=== PATIENT | male | born 1935 | race Caucasian/White ===

== ENCOUNTER 2017-08-17 08:26 | Outpatient (CLI) | payer MEDICARE ==
[~2017-08-17] VITALS: Ht 179.1 cm; Wt 80.9 kg
--- NOTE | ~2017-08-17 | OP ---
PATIENT NAME: DANA WU MEDICAL RECORD: [id number] :35 LOCATION:D.CAT ADMISSION DATE: SURGEON: ANAM SANCHEZ MD DATE OF OPERATION: 08/17/2017 PROCEDURES: 1. PTCA stent LAD. 2. Left heart catheterization. 3. Selective coronary angiography. 4. Left ventriculogram. 5. Intravascular ultrasound. INDICATION: Angina and coronary artery disease. PROCEDURE IN DETAIL: After informed consent was obtained and after detailed explanation of risks, benefits as well as alternative therapies, the patient elected to proceed with angiogram and angioplasty. The right femoral area was prepped and draped in normal sterile fashion. The right femoral artery was cannulated via modified Seldinger technique with placement of 6-Gu[place] sheath. All catheters exchanged through this sheath. FINDINGS: Left ventriculogram was performed in standard 30-degree JACOB view, reveals good cardiac wall motion throughout all segments. Overall ejection fraction estimated at 60%. SELECTIVE CORONARY ANGIOGRAPHY: 1. Left main showed no significant angiographic disease. 2. Left anterior descending has previously placed stents. There is up to 80% in-stent restenosis confirmed by intravascular ultrasound in the mid vessel. 3. Left circumflex shows moderate irregularities, but no flow-limiting stenosis. 4. The right coronary artery has moderate irregularities, but no flow-limiting stenosis. 5. There is a small vein graft that goes to a LAD diagonal system that is extremely small, but this is widely patent, unchanged from previous angiography. PTCA STENT OF THE LAD: The stent used is a 2.75 x 15 mm [place] taken to 21 atmospheres. Result was 0% residual stenosis. OVERALL IMPRESSION: Successful percutaneous transluminal coronary angioplasty stent of the left anterior descending going from 80% initial stenosis to 0% residual stenosis. TRANSINT:[id number] Voice Confirmation ID: [id number] DOCUMENT ID: [id number] ANAM SANCHEZ MD at 1056 CC: [id number] DICTATION DATE: 08/17/17 1121 OVEN HEATER: 08/17/17 1304 DEP CLI 08/17/17 [facility] [address] [id number]
--- NOTE | ~2017-08-17 | HEMODYNAMI ---
PATIENT:DANA WU MEDICAL RECORD: [id number] : 35 LOCATION:YUE ADMISSION DATE: 08/17/17 Generatedon:08/17/201711:26 Patient name: DANA WU Patient #: [id number] SSN: : 1935 Date of study: 08/17/2017 Page: Of Hemodynamic Procedure Report Patient Data Patient Demographics Procedure consent was obtained First Name: DANA Gender: Male Last Name: JAZMIN : 1935 [facility] Initial: O Age: 82 year(s) Patient #: [id number] Race: Additional ID: [id number] Contact details [address]: [address] [place] [address] State: [place] City: [place] Zip code: [address] Past Medical History Allergies Allergen Reaction Date Comments Reported Other allergy 09/25/2014 Amlodipine, Fenofibrate Other allergy 08/17/2017 AMLODIPIM, NIASPAN, FENOFIBRATE Admission Admission Data Admission Date: 08/17/2017 Admission Time: 8:26 Height (in.): 70 BSA: 2.01 (m2) Height (cm.): 177.8 BMI: 26.26 (kg/m2) Weight (lbs.): 183 Weight (kg.): 83.01 Lab Results Lab Result Date: 08/17/2017 Lab Result Time: 0:00 Biochemistry Name Units Result Min Max BUN mg/dl 19 --(----)*- 7 18 Creatinine mg/dl 0.9 --(-*--)-- 0.6 1.3 Procedure Procedure Types Cath Procedure Diagnostic Procedure LHC LHC w/Coronaries w/Grafts FFR/IVUS Intra-Coronary IVUS Initial PCI Procedure Coronary Stent Coronary Stent Initial Procedure Description Procedure Date Procedure Date: 08/17/2017 Procedure Start Time: 10:59 Procedure End Time: 11:25 Procedure Staff Name Function Juan Goodman MD Performing Physician Celso Guerrero RT Monitor Morales Reeves RN Nurse Liliane Kel RT Scrub Procedure Data Cath Procedure Fluoroscopy Diagnostic fluoroscopy Total fluoroscopy Time: 4.3 time: 4.3 min min Diagnostic fluoroscopy Total fluoroscopy dose: dose: 325.11 mGy 325.11 mGy Contrast Material Contrast Material Type Amount (ml) Isovue 300 92 Entry Location Entry Primary Successful Side Size Upsize Upsize Entry Closure Succes sful Closure Location (Fr) 1 (Fr) 2 (Fr) Remarks Device Remarks Femoral Right 5 Fr 6 Fr artery Short Estimated blood loss: 10 ml Diagnostic catheters Device Type Used For End Catheter Placement MULTIPACK Pigtail 5 Fr Procedure catheter MULTIPACK JL 4.0 5Fr Procedure catheter MULTIPACK 3DRC 5Fr Procedure catheter DIAGNOSTIC AR 1 MOD 5Fr Procedure catheter ([id number]) Procedure Medications Medication Administration Route Dosage Heparin Flush Bag added to field 2 bags (1000units/500ml NS) 0.9% NaCl I.V. 100 ml/hr Oxygen etCO2 Nasal cannula 2 l/min Fentanyl I.V. 50 mcg Versed I.V. 1 mg Fentanyl I.V. 50 mcg Versed I.V. 1 mg Heparin Bolus I.V. 4000 units Integrilin (Bolus I.V. 7.3 ml 2mg/ml) Integrilin (Bolus I.V. 2.7 ml 2mg/ml) Plavix P.O. 600 mg Hemodynamics Rest BSA: 2.01 (m2) O2 Consumption: Estimated: 213.99 (ml/min) O2 Consumption indexed : Estimated:106.46 (ml/min/m) Heart Rate: 50 (bpm) Pressure Samples Time Site Value (mmHg) Purpose Heart Use Rate(bpm) 11:00 LV 127/4,13 Snapshot 53 Snapshots Pre Cath Intra NCS Post Cath Vital Signs Time Heart Resp SPO2 etCO2 NIBP (mmHg) Rhythm Pain Sedation Rate (ipm) (%) (mmHg) Status Level (bpm) 10:37:28 58 19 97 28 164/82(134) NSR 0 (11) 10(A) , No pain 10:42:04 51 16 99 25.7 156/74(127) NSR 0 (11) 10(A) , No pain 10:46:39 53 16 99 35.5 160/69(125) NSR 0 (11) 10(A) , No pain 10:51:03 55 17 94 18.9 148/75(116) NSR 0 (11) 10(A) , No pain 10:55:31 51 17 97 24.9 158/67(130) NSR 0 (11) 10(A) , No pain 10:59:56 52 16 97 21.2 139/72(113) NSR 0 (11) 10(A) , No pain 11:04:54 58 17 95 34.8 Measuring NSR 0 (11) 9(A) , No pain 11:05:17 63 16 92 0 138/70(110) NSR 0 (11) 9(A) , No pain 11:09:41 59 17 95 0 141/69(109) NSR 0 (11) 9(A) , No pain 11:14:03 60 17 95 34 135/72(111) NSR 0 (11) 9(A) , No pain 11:18:26 57 17 96 17.4 149/71(120) NSR 0 (11) 9(A) , No pain 11:20:57 60 17 94 0 136/73(107) NSR 0 (11) 9(A) , No pain 11:25:21 56 10 96 29.5 132/68(109) NSR 0 (11) 9(A) , No pain Medications Time Medication Route Dose Verified Delivered Reason Notes Effectiveness by by 10:37:56 Heparin Flush added 2 Juan Trujilloy used for Bag to bags Rex Reeves RN procedure (1000units/500ml field NS) 10:38:07 0.9% NaCl I.V. 100 Juan Trujilloy Per physician ml/hr Rex Reeves RN 10:46:35 Oxygen etCO2 2 Juan Morales Per physician Nasal l/min Rex Reeves RN cannula 10:54:53 Fentanyl I.V. 50 Juan Morales for sedation mcg Rex Reeves RN 10:55:00 Versed I.V. 1 mg Juan Morales for sedation Rex Reeves RN 10:59:48 Fentanyl I.V. 50 Juan Morales for sedation mcg Rex Reeves RN 10:59:53 Versed I.V. 1 mg Juan Morales for sedation Rex Reeves RN 11:08:20 Heparin Bolus I.V. 4000 Juan Nielsen for units Rex Reeves RN anticoagulation 11:13:56 Integrilin I.V. 7.3 Juan Morales for (Bolus 2mg/ml) ml Rex Reeves RN antiplatelet therapy 11:14:04 Integrilin I.V. 2.7 Juan Nielsen for (Bolus 2mg/ml) ml Rex Reeves RN antiplatelet therapy 11:19:51 Plavix P.O. 600 Juan Nielsen for mg Rex Reeves RN antiplatelet therapy Procedure Log Time Note 10:09:04 Patient Height : 70 inches 10:09:08 Patient Weight : 183 lbs 10:09:54 Diagnostic Cath status Elective 10:09:56 Liliane Begum RT(R) sent for patient. Start room use. 10:09:57 Time tracking: Regular hours 10:10:02 Plan of Care:Hemodynamics will remain stable., Cardiac rhythm will remain stable., Comfort level will be maintained., Respiratory function will remain adequate., Patient/ family verbilizes understanding of procedure., Procedure tolerated without complication., Recovers from procedure without complications.. 10:28:45 Patient received from Pre/Post Procedure Room to [facility] 3 Alert and oriented. Tansferred to table in Supine position. 10:28:47 Warm blankets applied, and janine hugger turned on for patient comfort. 10:28:48 Correct patient and procedure confirmed by team. 10:28:52 Signed procedure consent form obtained from patient. 10:32:20 ECG and BP/O2 sat monitors applied to patient. 10:36:00 Vital chart was started 10:37:56 Heparin Flush Bag (1000units/500ml NS) 2 bags added to field was administered by Morales Reeves RN; used for procedure; 10:38:07 0.9% NaCl 100 ml/hr I.V. was administered by Morales Reeves RN; Per physician; 10:39:10 Baseline sample Acquired. 10:39:13 Rhythm: sinus rhythm 10:39:15 Full Disclosure recording started 10:39:30 H&P Date Dictated: 08/13/2017 Within 30 days and on chart.. 10:39:34 Pre-procedure instructions explained to patient. 10:39:34 Pre-op teaching completed and patient verbalized understanding. 10:39:37 Family in waiting room. 10:39:41 Patient NPO since Midnight. 10:43:31 Patient allergic to Other allergy AMLODIPIM, NIASPAN, FENOFIBRATE 10:43:36 Is the patient allergic to Iodine/contrast media? No. 10:43:39 Is patient on blood thinner?No 10:43:45 Patient diabetic? Yes. 10:43:47 If diabetic: On Metformin? No 10:43:56 DIET CONTROL 10:44:07 ----Pre-sedation anethsthesia assessment.---- 10:44:09 Previous problem with sedation/anesthesia? No ? 10:44:12 Snore? Yes 10:44:13 Sleep apnea? No 10:44:15 Deviated septum? No 10:44:25 Opens mouth fully? Yes 10:44:26 Sticks out tongue? Yes 10:44:29 Airway obstruction? No ? 10:44:37 Dentures? No ? 10:44:42 Pre procedure: right dorsailis pedis pulse 2+ Normal; easily identifiable; not easily obliterated 10:44:45 Patient pain scale 0/10 ?. 10:44:52 IV patent on arrival in left wrist with 0.9% NaCl at [facility]. 10:45:24 Lab Result : BUN 19 mg/dl 10:45:24 Lab Result : Creatinine 0.9 mg/dl 10:45:29 Lab results completed and on chart. 10:45:33 Right groin area was prepped with chlora-prep and draped in sterile fashion 10:45:35 Alarms reviewed by R. N. 10:45:35 Sharps counted by scrub and verified by R.N. 10:45:40 Use device set Femoral Dx 10:45:42 ACIST Syringe (66307) opened to sterile field. 10:45:43 Bag Decanter () opened to sterile field. 10:45:43 Medline Cath Pack ([id number]) opened to sterile field. 10:45:46 DIAGNOSTIC WIRE .035 260cm J wire (884984) opened to sterile field. 10:45:47 ACIST Hand Control (95428) opened to sterile field. 10:45:48 ACIST Manifold (99641) opened to sterile field. 10:45:49 DIAGNOSTIC Multipack 5Fr catheter set (TV6777) opened to sterile field. 10:45:52 Tegaderm 4 x 4 (1626W) opened to sterile field. 10:45:55 PERCUTANEOUS ENTRY 19GA needle opened to sterile field. 10:46:29 SHEATH 5Fr Prelude ([id number]) opened to sterile field. 10:46:35 Oxygen 2 l/min etCO2 Nasal cannula was administered by Morales Reeves RN; Per physician; 10:54:19 Physician arrived 10:54:19 --------ALL STOP TIME OUT------ 10:54:20 Final Timeout: patient, procedure, and site verified with staff and physician. All members of the team are in agreement. 10:54:22 Right groin site verified by team. 10:54:25 Physical assessment completed. ASA score P 2 - A patient with mild systemic disease as per Juan Goodman MD. 10:54:30 Physical assessment completed. ASA score P 2 - A patient with mild systemic disease as per Juan Goodman MD. 10:54:35 Sedation plan: IV Moderate Sedation Medication:Versed, Fentanyl 10:54:38 Zero performed for pressure channel P1 10:54:53 Fentanyl 50 mcg I.V. was administered by Morales Reeves RN; for sedation; 10:55:00 Versed 1 mg I.V. was administered by Morales Reeves RN; for sedation; 10:58:58 Procedure started. 10:59:02 Local anesthetic to right femoral artery with Lidocaine 2% by Juan Goodman MD.INITIAL ACCESS ONLY 10:59:14 A 5 Fr sheath was inserted into the Right Femoral artery 10:59:48 Fentanyl 50 mcg I.V. was administered by Morales Reeves RN; for sedation; 10:59:53 Versed 1 mg I.V. was administered by Morales Reeves RN; for sedation; 11:00:11 A MULTIPACK Pigtail 5 Fr catheter was advanced over the wire and used for Procedure. 11:01:00 LV gram done using JACOB 11:01:01 LV hemodynamics recorded. 11:01:08 EF : 60 % 11:01:38 Catheter removed. 11:01:46 A MULTIPACK JL 4.0 5Fr catheter was advanced over the wire and used for Procedure. 11:04:03 LCA angiography performed. 11:04:09 Catheter removed. 11:04:32 A MULTIPACK 3DRC 5Fr catheter was advanced over the wire and used for Procedure. 11:05:12 RCA angiography performed. 11:05:45 SHEATH 6Fr Prelude ([id number]) opened to sterile field. 11:05:57 CHOICE PT Extra Support 182cm wire ([id number]) opened to sterile field. 11:06:01 Catheter removed. 11:06:09 INFLATOR Merit Maksimk (ZQ0626) opened to sterile field. 11:06:23 A DIAGNOSTIC AR 1 MOD 5Fr catheter ([id number]) was advanced over the wire and used for Procedure. 11:06:54 SVG to OM angiography performed. 11:07:26 [place] IVUS Catheter (76520B) opened to sterile field. 11:07:35 GUIDE 6FR XBLAD 3.5 catheter ([id number]) opened to sterile field. 11:07:47 Catheter removed. 11:07:54 Proceeding to intervention. 11:08:04 Sheath upsized to a 6 Fr Short. 11:08:18 6 Fr XBLAD 3.5 guide catheter was inserted over the wire 11:08:20 Heparin Bolus 4000 units I.V. was administered by Morales Reeves RN; for anticoagulation; 11:09:33 CHOICE wire advanced. 11:10:27 Wire advanced across lesion. 11:10:31 FFR/IVUS 11:10:32 IVUS catheter advanced over wire. 11:10:36 IVUS pass to LAD lesion performed. 11:10:38 IVUS catheter removed over wire. 11:13:56 Integrilin (Bolus 2mg/ml) 7.3 ml I.V. was administered by Morales Reeves RN; for antiplatelet therapy; 11:14:04 Integrilin (Bolus 2mg/ml) 2.7 ml I.V. was administered by Morales Reeves RN; for antiplatelet therapy; 11:14:50 Inflation Number: 1 A TARIK RX 2.75 x 15 stent ([id number]) was prepped and advanced across the Mid LAD. The stent was deployed at 17 PETR for 0:10 (min:sec). 11:15:36 Stent catheter was removed intact over wire. 11:15:36 Wire removed. 11:15:37 Guide catheter removed. 11:17:28 Procedure type changed to Cath procedure, Diagnostic procedure, LHC, LHC w/Coronaries w/Grafts, FFR/IVUS, Intra-Coronary IVUS Initial, PCI procedure, Coronary Stent, Coronary Stent Initial 11:17:41 EXOSEAL 6Fr (EX600) opened to sterile field. 11:18:14 Procedure ended.(Physican Out) 11:18:30 Fluoroscopy time 04.30 minutes. 11:18:39 Flurop Dose total: 325.11 11:18:39 Fluoroscopy dose: 325.11 mGy 11:18:43 Contrast amount:Isovue 300 92ml. 11:18:45 Sharps counted by scrub and verified by R.N. 11:19:51 Plavix 600 mg P.O. was administered by Morales Reeves RN; for antiplatelet therapy; 11:23:32 Insertion/operative site no bleeding no hematoma. 11:23:36 Post-op/insertion site Right Femoral artery dressed using a 4 x 4 and Tegaderm. 11:23:40 Post right femoral artery:stable 11:23:43 Post Procedure Pulses reassessed and unchanged 11:23:52 Post procedure: right dorsailis pedis pulse 2+ Normal; easily identifiable; not easily obliterated. 11:23:56 Post-procedure physical assessment completed. ASA score P 2 - A patient with mild systemic disease as per Juan Goodman MD. 11:25:13 PATIENT WENT INTO [facility] DURING CASE. DR. GOODMAN AWARE 11:25:32 Estimated blood loss: 10 ml 11:25:33 Post procedure instruction explained to patient.Patient verbalizes understanding. 11:25:34 Patient needs reinforcement of post procedure teaching. 11:25:35 Procedure and supply charges have been captured, reviewed, submitted and are correct. 11:25:36 Vital chart was stopped 11:25:37 See physician's report for complete and final results. 11:25:40 Report given to Pre/Post Procedure Room. 11:25:44 Patient transfered to Pre/Post Procedure Room with Stretcher. 11:25:47 Procedure ended. 11:25:47 Full Disclosure recording stopped 11:25:52 End room use (Document Last) Intervention Summary Intervention Notes Time ActionType Lesion and Equipment Used Action# Pressure Duration Attributes 11:14:50 Place stent Mid LAD TARIK RX 2.75 x 1 17 00:10 15 stent ([id number]) Device Usage Item Name Manufacture Quantity Catalog Number Hospital Part Current M inimal Lot# / Charge Number Stock Stock Serial# Code ACIST Syringe Acist 1 37429 597646 331999 417199 2 0 (78022) Medical Systems Inc Bag Decanter Microtek 1 411919 26213 805498 5 () Medical Inc. Medline Cath Cardinal 1 [id number] 216152 93018 917180 5 Pack Health ([id number]) DIAGNOSTIC St [place] 1 549383 289322 765982 096231 3 0 WIRE .035 260cm J wire (953696) ACIST Hand Acist 1 25200 718418 292271 259939 5 Control Medical (52270) Systems Inc ACIST Manifold Acist 1 57189 382957 955530 446071 5 (01179) Medical Systems Inc DIAGNOSTIC Cardinal 1 TN1084 964775 73578 777259 3 0 Multipack 5Fr Health catheter set (UZ6825) Tegaderm 4 x 4 3M 1 1626W 105903 421513 328695 5 (1626W) PERCUTANEOUS Cook Medical 1 U39339 546657 323196 5 ENTRY 19GA needle SHEATH 5Fr Merit 1 [id number] 167931 992335 824330 5 Prelude Medical ([id number]) MULTIPACK Cardinal 1 321963 5 Pigtail 5 Fr Health catheter MULTIPACK JL Cardinal 1 504371 5 4.0 5Fr Health catheter MULTIPACK 3DRC Cardinal 1 274139 5 5Fr catheter Health SHEATH 6Fr Merit 1 [id number] 096437 504666 293565 5 Prelude Medical ([id number]) CHOICE PT [place] 1 [id number] 865098 855251 406460 5 Extra Support Scientific 182cm wire ([id number]) INFLATOR Merit Merit 1 CQ2784 187693 642104 031908 1 5 Lumics Medical (JS7267) DIAGNOSTIC AR Cardinal 1 [id number] 828886 090302 008778 1 5 1 MOD 5Fr Health catheter (926629D) Barrington Barrington 1 [id number] 394626 793982 823946 8 [place] IVUS Catheter (43746F) GUIDE 6FR Cardinal 1 [id number] 392538 822752 012547 1 0 XBLAD 3.5 Health catheter ([id number]) TARIK RX 2.75 x Medtronic 1 [id number] 590175 5256784 756297 5 [id number] 15 stent ([id number]) EXOSEAL 6Fr Cardinal 1 EX600 756307 797629 496425 1 0 (EX600) Health Signature Audit [place] Stage Time Signature Unsigned Intra-Procedure 08/17/2017 Celso Guerrero 11:26:11 AM RT(R) (CV) Signatures Monitor : Celso Guerrero RT Signature : Date : Time : [id number] [facility] [place] [address]
[~2017-08-17 08:26] MED LIST: BAYER CHEWABLE81 MG PO; LIPITOR10 MG PO; NEURONTIN 400400 MG PO; PLAVIX75 MG PO; PRINIVIL20 MG PO
[2017-08-17] MEDS ORDERED: CARTIA XT180 MG PO (09:18)
[2017-08-17 09:30] VITALS: BP 172/66; Ht 179.1 cm; Wt 80.9 kg
[2017-08-17 09:49] LABS: CALC OSMOLALITY 283 mosm/kg (275-300); CALCIUM 9.5 mg/dL (8.5-10.1); CARBON DIOXIDE 25.9 mmol/L (21.0-32.0); CHLORIDE - SERUM 106 mmol/L (98-107); CREATININE - SERUM 0.9 mg/dL (0.6-1.3); GLUCOSE 110 mg/dL (74-106); POTASSIUM - SERUM 4.6 mmol/L (3.5-5.1); SODIUM 141 mmol/L (136-145); UREA NITROGEN 19 mg/dL (7-18); eGFR NON AFRICAN AMERICAN 86 mL/min (90-120)
[2017-08-17 10:01] LABS: BASOPHILS 0.3 % (0-2); EOSINOPHILS 1.8 % (0-7); HEMATOCRIT 41.6 % (42.0-54.0); HEMOGLOBIN 14.2 g/dL (13.5-17.5); IMMATURE GRANULOCYTES 0.3 % (0-5); LYMPHOCYTES 27.7 % (15-50); MCH 33.1 pg (26.0-34.0); MCHC 34.1 g/dL (31.0-37.0); MEAN PLATELET VOLUME 10.1 fL (7.4-10.4); MONOCYTES 10.6 % (2-11); NEUTROPHILS 59.3 % (40-80); PLATELET COUNT 166 10x3/uL (130-400); RBC 4.29 10x6/uL (4.20-6.10); RDW 13.7 % (11.5-14.5); WBC 7.6 10x3/uL (4.8-10.8)
[2017-08-17] MEDS ORDERED: PLAVIX75 MG PO (11:30)
== END 2017-08-17 15:15 | disposition home or self-care (01) ==
LOC: D.CATH 08:26
PROVIDERS: Internal Medicine Interventional Cardiology
DX: I25.119 Atherosclerotic heart disease of native coronary artery with unspecified angina pectoris (principal); Z01.812 Encounter for preprocedural laboratory examination
CPT/HCPCS: 92978; 93459; C9600

== ENCOUNTER 2017-12-02 11:38 | Emergency (ER) | payer MEDICARE ==
[~2017-12-02] VITALS: Ht 179.1 cm; Wt 80.9 kg
[~2017-12-02 11:38] MED LIST changes: +CARTIA XT180 MG PO
[2017-12-02 11:43] VITALS: Ht 179.1 cm; Wt 80.9 kg
[2017-12-02] MEDS ORDERED: LISINOPRIL5 MG PO (11:49)
[2017-12-02 12:58] LABS: BASOPHILS 0.1 % (0-2); EOSINOPHILS 1.2 % (0-7); HEMOGLOBIN 13.4 g/dL (13.5-17.5); IMMATURE GRANULOCYTES 0.2 % (0-5); LYMPHOCYTES 15.1 % (15-50); MCH 32.7 pg (26.0-34.0); MCHC 34.4 g/dL (31.0-37.0); MCV 95.1 fL (80.0-100.0); MONOCYTES 9.5 % (2-11); NEUTROPHILS 73.9 % (40-80); PLATELET COUNT 136 10x3/uL (130-400); RDW 12.7 % (11.5-14.5); WBC 9.1 10x3/uL (4.8-10.8)
[2017-12-02 13:11] LABS: ALBUMIN 3.7 g/dL (3.4-5.0); ALKALINE PHOSPHATASE 78 U/L (46-116); ALT (SGPT) 28 U/L (10-68); BILIRUBIN - TOTAL 0.58 mg/dL (0.2-1.3); CALC OSMOLALITY 280 mosm/kg (275-300); CALCIUM 9.3 mg/dL (8.5-10.1); CARBON DIOXIDE 27.1 mmol/L (21.0-32.0); CHLORIDE - SERUM 104 mmol/L (98-107); GLUCOSE 118 mg/dL (74-106); POTASSIUM - SERUM 4.9 mmol/L (3.5-5.1); SODIUM 136 mmol/L (136-145); UREA NITROGEN 34 mg/dL (7-18); eGFR NON AFRICAN AMERICAN 76 mL/min (90-120)
[2017-12-02 13:20] LABS: THYROID STIMULATING HORMONE 1.74 uIU/mL (0.36-3.74)
[2017-12-02 14:23] VITALS: BP 143/65
== END 2017-12-02 14:06 | disposition home or self-care (01) ==
LOC: D.ER 11:38
PROVIDERS: Family Medicine
DX: R42 Dizziness and giddiness (principal); E11.9 Type 2 diabetes mellitus without complications; I10 Essential (primary) hypertension

== ENCOUNTER 2018-09-25 08:48 | Outpatient (CLI) | payer MEDICARE ==
[~2018-09-25] VITALS: Ht 179.1 cm; Wt 85.0 kg
--- NOTE | ~2018-09-25 | HEMODYNAMI ---
PATIENT:DANA WU MEDICAL RECORD: [id number] : 35 LOCATION:[facility] ADMISSION DATE: 09/25/18 Generatedon:09/25/201811:01 Patient name: DANA WU Patient #: [id number] SSN: : 1935 Date of study: 09/25/2018 Page: Of Hemodynamic Procedure Report Patient Data Patient Demographics Procedure consent was obtained First Name: DANA Gender: Male Last Name: JAZMIN : 1935 [facility] Initial: O Age: 83 year(s) Patient #: [id number] Race: Additional ID: [id number] Contact details Address: [address] [place] [address] State: [place] City: [place] Zip code: [address] Past Medical History Allergies Allergen Reaction Date Comments Reported Other allergy 09/25/2014 Amlodipine, Fenofibrate Other allergy 08/17/2017 AMLODIPIM, NIASPAN, FENOFIBRATE Other allergy 09/25/2018 AMLODIPINE, FENOFIBRATE, NIASPAN EXTENEDED- RELEASE Admission Admission Data Admission Date: 09/25/2018 Admission Time: 8:48 Height (in.): 70 BSA: 2.01 (m2) Height (cm.): 177.8 BMI: 26.4 (kg/m2) Weight (lbs.): 184 Weight (kg.): 83.46 Lab Results Lab Result Date: 09/25/2018 Lab Result Time: 0:00 Biochemistry Name Units Result Min Max BUN mg/dl 23 --(----)-* 7 18 Creatinine mg/dl 1 --(--*-)-- 0.6 1.3 CBC Name Units Result Min Max Hematocrit % 45.4 --(-*--)-- 42 54 Hemoglobin g/dl 16.4 --(--*-)-- 13.5 17.5 Procedure Procedure Types Cath Procedure Diagnostic Procedure C LHC w/Coronaries w/Grafts FFR/IVUS FFR Initial FFR Additional Sedation Charges Moderate Sedation up to 15 minutes PCI Procedure Coronary Stent Coronary Stent Initial Procedure Description Procedure Date Procedure Date: 09/25/2018 Procedure Start Time: 10:32 Procedure End Time: 11:00 Procedure Staff Name Function Juan Goomdan MD Performing Physician Adrianna Broderick RT Monitor Smooth Gayle RT Scrub Morales Reeves RN Nurse Procedure Data Cath Procedure Fluoroscopy Diagnostic fluoroscopy Total fluoroscopy Time: 6.8 time: 6.8 min min Diagnostic fluoroscopy Total fluoroscopy dose: dose: 1019 mGy 1019 mGy Contrast Material Contrast Material Type Amount (ml) Isovue 300 177 Entry Location Entry Primary Successful Side Size Upsize Upsize Entry Closure Succes sful Closure Location (Fr) 1 (Fr) 2 (Fr) Remarks Device Remarks Femoral Right 5 Fr 6 Fr Exoseal artery Short Estimated blood loss: 10 ml Diagnostic catheters Device Type Used For End Catheter Placement MULTIPACK Pigtail 5 Fr Procedure catheter MULTIPACK JL 4.0 5Fr Procedure catheter MULTIPACK 3DRC 5Fr Procedure catheter DIAGNOSTIC AR2 MOD 5 Fr Procedure catheter ([id number]) Procedure Complications No complications Procedure Medications Medication Administration Route Dosage Oxygen etCO2 Nasal cannula 2 l/min Heparin Flush Bag added to field 2 bags (1000units/500ml NS) 0.9% NaCl I.V. 100 ml/hr Lidocaine 2% added to field 20 Fentanyl I.V. 50 mcg Versed I.V. 1 mg Heparin Bolus I.V. 4000 units Integrilin (Bolus I.V. 7.3 ml 2mg/ml) Fentanyl I.V. 50 mcg Versed I.V. 1 mg Plavix P.O. 600 mg Hemodynamics Rest BSA: 2.01 (m2) O2 Consumption: Estimated: 243.32 (ml/min) O2 Consumption indexed : Estimated:121.05 (ml/min/m) Heart Rate: 89 (bpm) Snapshots Pre Cath Intra NCS Post Cath Vital Signs Time Heart Resp SPO2 etCO2 NIBP (mmHg) Rhythm Pain Sedation Rate (ipm) (%) (mmHg) Status Level (bpm) 10:22:07 97 16 96 0 172/96(130) NSR 0 (11) 10(A) , No pain 10:26:29 71 17 97 28.3 165/81(130) NSR 0 (11) 10(A) , No pain 10:30:52 69 16 98 32 160/78(124) NSR 0 (11) 10(A) , No pain 10:35:14 73 17 96 24.5 160/78(123) NSR 0 (11) 9(A) , No pain 10:39:36 74 16 97 12.6 157/78(124) NSR 0 (11) 9(A) , No pain 10:43:58 72 16 98 16.3 155/79(120) NSR 0 (11) 9(A) , No pain 10:48:16 75 16 96 26 143/75(115) NSR 0 (11) 9(A) , No pain 10:52:34 73 16 98 0 159/80(127) NSR 0 (11) 9(A) , No pain 10:56:58 66 17 99 0 148/71(126) NSR 0 (11) 9(A) , No pain Medications Time Medication Route Dose Verified Delivered Reason Notes Effectiveness by by 10:21:22 Oxygen etCO2 2 Juan Nielsen Per physician Nasal l/min Rex Reeves RN cannula 10:21:29 Heparin Flush added 2 Juan Trujilloy used for Bag to bags Rex Reeves RN procedure (1000units/500ml field NS) 10:21:37 0.9% NaCl I.V. 100 Juan Nielsen Per physician ml/hr Rex Reeves RN 10:21:46 Lidocaine 2% added 20ml Juan Nielsen used for to vial Rex Reeves RN procedure field 10:31:51 Fentanyl I.V. 50 Juan Trujilloy for sedation mcg Rex Reeves RN 10:31:58 Versed I.V. 1 mg Juan Nielsen for sedation Rex Reeves RN 10:40:56 Heparin Bolus I.V. 4000 Juan Nielsen for units Rex Reeves RN anticoagulation 10:42:38 Integrilin I.V. 7.3 Juan Nielsen for (Bolus 2mg/ml) ml Rex Reeves RN antiplatelet therapy 10:47:28 Fentanyl I.V. 50 Juan Trujilloy for sedation mcg Rex Reeves RN 10:47:32 Versed I.V. 1 mg Juan Nielsen for sedation Rex Reeves RN 10:57:00 Plavix P.O. 600 Juan Nielsen for mg Tauth MD Reeves RN antiplatelet therapy Procedure Log Time Note 9:44:16 Signed procedure consent form obtained from patient. 9:44:18 Diagnostic Cath status Elective 9:44:19 Time tracking: Regular hours (M-F 7:00 - 5:00) 9:44:25 Plan of Care:Hemodynamics will remain stable., Cardiac rhythm will remain stable., Comfort level will be maintained., Respiratory function will remain adequate., Patient/ family verbilizes understanding of procedure., Procedure tolerated without complication., Recovers from procedure without complications.. 9:45:21 H&P Date Dictated: 09/18/2018 Within 30 days and on chart., H&P Addendum completed by physician on day of procedure. (MUST COMPLETE FOR ALL OUTPATIENTS). 9:45:59 Patient allergic to Other allergyAMLODIPINE, FENOFIBRATE, NIASPAN EXTENEDED- RELEASE 9:46:43 Patient Height : 70 inches 9:46:47 Patient Weight : 184 lbs 10:00:42 Morales Reeves RN sent for patient. Start room use. 10:02:08 Lab Result : BUN 23 mg/dl 10:02:08 Lab Result : Creatinine 1 mg/dl 10:02:08 Lab Result : Hemoglobin 16.4 g/dl 10:02:08 Lab Result : Hematocrit 45.4 % 10:14:41 Patient received from Pre/Post Procedure Room to CCL 1 Alert and oriented. Tansferred to table in Supine position. 10:14:42 Warm blankets applied, and janine hugger turned on for patient comfort. 10:14:43 Correct patient and procedure confirmed by team. 10:14:45 ECG and BP/O2 sat monitors applied to patient. 10:21:00 Vital chart was started 10:21:22 Oxygen 2 l/min etCO2 Nasal cannula was administered by Morales Reeves RN; Per physician; 10:21:29 Heparin Flush Bag (1000units/500ml NS) 2 bags added to field was administered by Morales Reeves RN; used for procedure; 10:21:37 0.9% NaCl 100 ml/hr I.V. was administered by Morales Reeves RN; Per physician; 10:21:39 Baseline sample Acquired. 10:21:44 Rhythm: sinus rhythm 10:21:45 Full Disclosure recording started 10:21:45 Pre-procedure instructions explained to patient. 10:21:46 Lidocaine 2% 20ml vial added to field was administered by Morales Reeves RN; used for procedure; 10:21:46 Pre-op teaching completed and patient verbalized understanding. 10:21:47 Family in patients room. 10:21:48 Patient NPO since Midnight. 10:21:50 Is patient on blood thinner?No 10:21:52 Patient diabetic? No. 10:21:54 Previous problem with sedation/anesthesia? No ? 10:21:57 Snore? Yes 10:22:00 Sleep apnea? No 10:22:01 Deviated septum? No 10:22:02 Opens mouth fully? Yes 10:22:03 Sticks out tongue? Yes 10:22:04 Airway obstruction? No ? 10:22:06 Dentures? No ? 10:22:08 Pre procedure: right dorsailis pedis pulse 1+ Palpable, but thready & weak; easily obliterated 10:22:23 Patient pain scale 0/10 ?. 10:22:28 IV patent on arrival in left forearm with 0.9% NaCl at [facility]. 10:22:30 Lab results completed and on chart. 10:22:33 Right groin area was prepped with chlora-prep and draped in sterile fashion 10:22:34 Alarms reviewed by R. N. 10:22:34 Sharps counted by scrub and verified by R.N. 10:22:37 Use device set Femoral Dx 10:22:38 ACIST Syringe (37324) opened to sterile field. 10:22:38 Bag Decanter (2002S) opened to sterile field. 10:22:39 ACIST Hand Control (34739) opened to sterile field. 10:22:39 ACIST Manifold (16884) opened to sterile field. 10:22:40 Tegaderm 4 x 4 (1626W) opened to sterile field. 10:22:41 Medline Cath Pack ([id number]) opened to sterile field. 10:22:42 DIAGNOSTIC WIRE .035 260cm J wire (344315) opened to sterile field. 10:22:43 DIAGNOSTIC Multipack 5Fr catheter set (HD7465) opened to sterile field. 10:22:44 SHEATH 5FR Astatula (NVE728) opened to sterile field. 10:31:29 --------ALL STOP TIME OUT------ 10:31:29 Final Timeout: patient, procedure, and site verified with staff and physician. All members of the team are in agreement. 10:31:30 Right groin site verified by team. 10:31:33 Maximum allowable Isovue 300 dose 300ml. Physician notified. (300ml for normal creatinines. For patients with creatinine of 1.7 or higher multiply weight(kg) x 5 divided by creatinine.) 10:31:36 Fire Safety Assessment: A--An alcohol-based skin anteseptic being used preoperatively., C--Open oxygen or nitrous oxide is being used., D--An ESU, laser, or fiber-optic light is being used. 10:31:38 Physical assessment completed. ASA score P 2 - A patient with mild systemic disease as per Juan Goodman MD. 10:31:40 Sedation plan: IV Moderate Sedation Medication:Versed, Fentanyl 10:31:43 Zero performed for pressure channel P1 10::47 Procedure started. 10::51 Fentanyl 50 mcg I.V. was administered by Morales Reeves RN; for sedation; 10::55 Zero performed for pressure channel P1 10::58 Versed 1 mg I.V. was administered by Morales Reeves RN; for sedation; 10:32:06 Local anesthetic to right femoral artery with Lidocaine 2% by Juan Goodman MD.INITIAL ACCESS ONLY 10:32:28 A 5 Fr sheath was inserted into the Right Femoral artery 10:32:51 A MULTIPACK Pigtail 5 Fr catheter was advanced over the wire and used for Procedure. 10:33:08 LV gram done using JACOB 10:33:11 Injector settings: Ml/sec: 10, Volume: 20, 10:33:33 EF : 60 % 10:33:34 Catheter removed. 10:33:46 A MULTIPACK JL 4.0 5Fr catheter was advanced over the wire and used for Procedure. 10:35:02 LCA angiography performed. 10:35:04 Catheter removed. 10:35:14 A MULTIPACK 3DRC 5Fr catheter was advanced over the wire and used for Procedure. 10:36:06 HUMPHREY to LAD angiography performed. 10:36:22 RCA angiography performed. 10:36:29 Catheter removed. 10:36:35 A DIAGNOSTIC AR2 MOD 5 Fr catheter (146327N) was advanced over the wire and used for Procedure. 10:38:14 SVG to OM angiography performed. 10:38:47 Catheter removed. 10:38:53 SHEATH 6FR Astatula (OLN971) opened to sterile field. 10:38:53 INFLATOR Merit BasixCompak (TS6602) opened to sterile field. 10:38:54 GUIDE 6FR XBLAD 3.5 catheter ([id number]) opened to sterile field. 10:39:01 [place] Verrata Plus pressure wire (68124V) opened to sterile field. 10:39:19 Sheath upsized to a 6 Fr Short. 10:39:50 6 Fr XBLAD 3.5 guide catheter was inserted over the wire 10:40:56 Heparin Bolus 4000 units I.V. was administered by Morales Reeves RN; for anticoagulation; 10:41:08 FFR/IFR wire advanced. 10:42:38 Integrilin (Bolus 2mg/ml) 7.3 ml I.V. was administered by Morales Reeves RN; for antiplatelet therapy; 10:43:01 CIRC lesion measured at 1.02 with IFR 10:44:18 Wire removed. 10:44:29 CHOICE PT Extra Support 182cm wire ([id number]) opened to sterile field. 10:46:02 Wire advanced across lesion. 10:47:05 Place stent Inflation Number: 1 A TARIK RX 5.0 x 12 stent ([id number]) was prepped and advanced across the LMCA. The stent was deployed at 13 PETR for 0:00 (min:sec). 10:47:27 Inflation number: 2 The stent balloon was then re-inflated across the LMCA to 15 PETR for 0:00 (min:sec). 10:47:28 Fentanyl 50 mcg I.V. was administered by Morales Reeves RN; for sedation; 10:47:32 Versed 1 mg I.V. was administered by Morales Reeves RN; for sedation; 10:47:47 Stent catheter was removed intact over wire. 10:47:57 Wire removed. 10:48:35 FFR/IFR wire advanced. 10:50:32 LAD lesion measured at 0.97 with IFR 10:50:36 Wire removed. 10:50:38 Guide catheter removed. 10:50:59 EXOSEAL 6Fr (EX600) opened to sterile field. 10:51:34 Sheath removed intact; hemostasis achieved with Exoseal to the Right Femoral artery. 10:51:37 Procedure ended.(Physican Out) 10:52:30 Fluoroscopy time 06.80 minutes. 10:52:34 Flurop Dose total: 1019 10::34 Fluoroscopy dose: 1019 mGy 10::37 Contrast amount:Isovue 300 177ml. 10:52:38 Sharps counted by scrub and verified by R.N. 10:52:41 Post-op/insertion site Right Femoral artery dressed using a 4 x 4 and Tegaderm. 10:52:46 Post-procedure physical assessment completed. ASA score P 2 - A patient with mild systemic disease as per Juan Goodman MD. 10:52:49 Post procedure rhythm: sinus rhythm 10:52:50 Estimated blood loss: 10 ml 10:52:52 Post procedure instruction explained to patient.Patient verbalizes understanding. 10:52:52 Patient needs reinforcement of post procedure teaching. 10:53:31 Procedure type changed to Cath procedure, Diagnostic procedure, LHC, LHC w/Coronaries w/Grafts, FFR/IVUS, FFR Initial, FFR Additional, Sedation Charges, Moderate Sedation up to 15 minutes, PCI procedure, Coronary Stent, Coronary Stent Initial 10:55:31 Procedure and supply charges have been captured, reviewed, submitted and are correct. 10:55:34 Procedure Complication : No complications 10:57:00 Plavix 600 mg P.O. was administered by Morales Reeves RN; for antiplatelet therapy; 10:59:49 Vital chart was stopped 10:59:50 See physician's report for complete and final results. 10:59:58 Report given to Pre/Post Procedure Room. 11:00:01 Patient transfered to Pre/Post Procedure Room with Bed. 11:00:03 Procedure ended. 11:00:03 Full Disclosure recording stopped 11:00:09 End room use (Document Last) Intervention Summary Intervention Notes Time ActionType Lesion and Equipment Used Action# Pressure Duration Attributes 10:47:05 Place stent LMCA TARIK RX 5.0 x 1 13 00:00 12 stent ([id number]) 10:47:27 Reinflate LMCA TARIK RX 5.0 x 2 15 00:00 stent 12 stent balloon ([id number]) Device Usage Item Name Manufacture Quantity Catalog Number Hospital Part Current Minimal Lot# / Charge Number Stock Stock Serial# Code ACIST Syringe Acist 1 78481 541718 501825 113734 20 (41309) Medical Systems Inc Bag Decanter Microtek 1 2001S 547457 87997 282294 5 (2001S) Medical Inc. ACIST Hand Acist 1 40628 735586 410397 096294 5 Control Medical (09107) Systems Inc ACIST Manifold Acist 1 93360 464602 053371 840475 5 (94892) Medical Systems Inc Tegaderm 4 x 4 3M 1 1626W 669206 285643 580556 5 (1626W) Medline Cath Medline 1 [id number] 997808 11553 140101 5 Pack ([id number]) DIAGNOSTIC St Jeff 1 271804 829383 423497 151886 30 WIRE .035 260cm J wire (632384) DIAGNOSTIC Cardinal 1 CM7548 674717 21092 938536 30 Multipack 5Fr Health catheter set (VF1144) SHEATH 5FR Terumo 1 VOZ776 266398 748454 710496 5 Astatula (TJE134) MULTIPACK Cardinal 1 492917 5 Pigtail 5 Fr Health catheter MULTIPACK JL Cardinal 1 227120 5 4.0 5Fr Health catheter MULTIPACK 3DRC Cardinal 1 779138 5 5Fr catheter Health DIAGNOSTIC AR2 Cardinal 1 [id number] 231141 478430 589686 20 MOD 5 Fr Health catheter (242464O) SHEATH 6FR Terumo 1 TVZ574 747585 605022 022483 40 Astatula (BRZ416) INFLATOR Merit Merit 1 UY7590 354563 958469 809868 15 [facility] (ZJ5373) GUIDE 6FR Cardinal 1 [id number] 783459 099128 680390 10 XBLAD 3.5 Health catheter ([id number]) Alexandria Alexandria 1 81937W 828758 964568256 388393 5 Verrata Plus pressure wire (83812O) CHOICE PT [place] 1 [id number] 286963 995857 792143 5 Extra Support Scientific 182cm wire ([id number]) TARIK RX 5.0 x Medtronic 1 [id number] 249751 9684016 969131 5 [id number] 12 stent ([id number]) EXOSEAL 6Fr Cardinal 1 EX600 783886 930893 960270 10 (EX600) Health Signature Audit [place] Stage Time Signature Unsigned Intra-Procedure 09/25/2018 Adrianna Broderick 11:00:51 AM RT(R) Signatures Monitor : Adrianna Broderick Signature : RT Date : Time : [id number] [place] [address]
[~2018-09-25 08:48] MED LIST changes: +LISINOPRIL5 MG PO
[2018-09-25 09:11] VITALS: BP 169/69; Ht 179.1 cm; Wt 85.0 kg
[2018-09-25] MEDS ORDERED: ADALAT CC90 MG PO (09:20)
[2018-09-25] MEDS ORDERED: PROTONIX20 MG PO (09:21)
[2018-09-25] MEDS ORDERED: FLOMAX0.4 MG PO (09:21)
[2018-09-25 09:23] LABS: BASOPHILS 0.2 % (0-2); HEMATOCRIT 45.4 % (42.0-54.0); HEMOGLOBIN 16.4 g/dL (13.5-17.5); IMMATURE GRANULOCYTES 0.2 % (0-5); LYMPHOCYTES 19.8 % (15-50); MCH 32.2 pg (26.0-34.0); MCHC 36.1 g/dL (31.0-37.0); MCV 89.2 fL (80.0-100.0); MEAN PLATELET VOLUME 9.8 fL (7.4-10.4); MONOCYTES 9.1 % (2-11); NEUTROPHILS 69.7 % (40-80); PLATELET COUNT 157 10x3/uL (130-400); RBC 5.09 10x6/uL (4.20-6.10); WBC 8.9 10x3/uL (4.8-10.8)
[2018-09-25 09:32] LABS: CALC OSMOLALITY 281 mosm/kg (275-300); CALCIUM 9.7 mg/dL (8.5-10.1); CHLORIDE - SERUM 103 mmol/L (98-107); GLUCOSE 127 mg/dL (74-106); POTASSIUM - SERUM 3.8 mmol/L (3.5-5.1); SODIUM 138 mmol/L (136-145); UREA NITROGEN 23 mg/dL (7-18); eGFR NON AFRICAN AMERICAN 76 mL/min (90-120)
[2018-09-25] MEDS ORDERED: PLAVIX75 MG PO (11:08)
--- NOTE | 2018-09-25 11:12 | NUR ---
PATIENT ARRIVED TO ROOM 9, VSS ON CM. RIGHT GROIN DRESSING IS CDI, NO S/S OF BLEEDING OR HEMATOMA. NO C/O PAIN, NUMBNESS, OR TINGLING. WILL CONTINUE TO MONITOR.
--- NOTE | 2018-09-25 11:25 | NUR ---
PATIENT RESTING, VSS ON ROOM AIR. RIGHT GROIN DRESING IS CDI, NO S/S OF BLEEDING OR HEMATOMA. NO C/O PAIN, NUMBNESS, OR TINGLING. NO N/V. FAMILY PRESENT AT BEDSIDE.
--- NOTE | 2018-09-25 11:56 | NUR ---
PATIENT RESTING, FAMILY AT BEDSIDE. RIGHT GROIN DRESSING IS CDI, NO S/S OF BLEEDING OR HEMATOMA. NO C/O PAIN, NUMBNESS, OR TINGLING. NO N/V.
--- NOTE | 2018-09-25 12:26 | NUR ---
PATIENT RESTING, VSS ON ROOM AIR. RIGHT GROIN DRESSING IS CDI, NO S/S OF BLEEDING OR HEMATOMA. NO C/O PAIN. WILL CONTINUE TO MONITOR.
--- NOTE | 2018-09-25 12:54 | NUR ---
PATIENT AWAKE, EATING ICE CHIPS. NO N/V. RIGHT GROIN DRESSING IS CDI, NO S/S OF BLEEDING OR HEMATOMA. NO C/O PAIN. VSS ON ROOM AIR.
--- NOTE | 2018-09-25 13:25 | NUR ---
PATIENT RESTING, PRESENT AT BEDSIDE. VSS ON ROOM AIR. RIGHT GROIN DRESSING IS CDI, NO S/S OF BLEEDING OR HEMATOMA. NO C/O PAIN, NUMBNESS, OR TINGLING. NO N/V.
--- NOTE | 2018-09-25 13:55 | NUR ---
HEAD OF BED ELEVATED TO 30 DEGREES, RIGHT GROIN DRESSING IS CDI, NO S/S OF BLEEDING OR HEMATOMA. NO C/O PAIN, NUMBNESS, OR TINGLING. PATIENT EATING CHICKEN NOODLE SOUP AND DRINKING ICE WATER, NO N/V. VSS ON ROOM AIR. PRESENT AT BEDSIDE. PATIENT VOIDED SMALL AMOUNT OF YELLOW URINE.
--- NOTE | 2018-09-25 14:25 | NUR ---
HEAD OF BED AT 90 DEGREES. RIGHT GROIN DRESSING IS CDI, NO S/S OF BLEEDING OR HEMATOMA. NO C/O PAIN, NUMBNESS, OR TINGLING. VSS ON ROOM AIR. IV REMOVED. PRESENT AT BEDSIDE.
--- NOTE | 2018-09-25 14:43 | NUR ---
WRITTEN AND VERBAL EDUCATION GIVEN TO PATIENT AND SPOUSE REGARDING DISCHARGE INSTRUCTIONS AND MEDICATION COMPLIANCE. VSS ON ROOM AIR. RIGHT GROIN DRESSING IS CDI, NO S/S OF BLEEDING OR HEMATOMA.
--- NOTE | 2018-09-25 14:55 | NUR ---
PATIENT TRANSPORTED VIA WHEELCHAIR TO CAR WITH SPOUSE DRIVING, ALL BELONGINGS WITH PATIENT.
--- NOTE | 2018-09-27 16:41 | OP ---
PATIENT NAME: DANA WU MEDICAL RECORD: [id number] :35 LOCATION:D.CAT ADMISSION DATE: SURGEON: ANAM SANCHEZ MD DATE OF OPERATION: 09/25/2018 PROCEDURES: 1. PTCA stent left main. 2. IFR LAD. 3. IFR circumflex. 4. Left heart catheterization. 5. Selective coronary angiography. 6. Vein graft angiography. 7. HUMPHREY angiography. 8. SVG angiography. INDICATION: Angina and coronary artery disease. PROCEDURE IN DETAIL: After informed consent was obtained and after a detailed description of the risks, benefits as well as alternative therapies, the patient elected to proceed with angiogram and angioplasty. The right femoral area was prepped and draped in normal sterile fashion. Right femoral artery was cannulated via modified Seldinger technique with placement of 6-Taiwanese sheath. All catheters exchanged through this sheath. FINDINGS: The left ventriculogram was performed in standard 30-degree JACOB view, reveals good cardiac wall motion, ejection fraction 55% to 60%. SELECTIVE CORONARY ANGIOGRAPHY: 1. Left main has at least 70% stenosis with pressure damping of the diagnostic catheter at the ostium. 2. The LAD is widely patent. There is a questionable stenosis proximal in the LAD; however, after PTCA stent of left main, IFR was normal. 3. Left circumflex has questionable stenosis at the ostium. However, after PTCA stent of left main, IFR was normal. 4. There was a total occlusion of the first obtuse marginal of the circumflex; however, this was successfully grafted with a patent vein graft. 5. HUMPHREY to the LAD is atretic. 6. The right coronary artery has mild irregularities, but no flow-limiting stenosis. PTCA STENT OF THE LEFT MAIN: The stent used was a 5.0 x 12 mm Sin stent. Result was 0% residual stenosis. OVERALL IMPRESSION: Successful percutaneous transluminal coronary angioplasty stent of the left main going from at least 70% initial stenosis to 0% residual. TRANSINT:[id number] Voice Confirmation ID: [id number] DOCUMENT ID: [id number] OPERATIVE REPORT [id number] DANA WU ANAM SANCHEZ MD at 1641 CC: [id number] DICTATION DATE: 09/25/18 1054 REGISTERED DIETICIAN: 09/25/18 1109 DEP CLI 09/25/18 [facility] [address] [place] [address]
== END 2018-09-25 14:55 ==
LOC: D.CATH 08:48
PROVIDERS: ATTEND Internal Medicine Interventional Cardiology
DX: I25.119 Atherosclerotic heart disease of native coronary artery with unspecified angina pectoris (principal)
CPT/HCPCS: 93459; C9600

== ENCOUNTER 2019-05-22 15:14 | Emergency (ER) | payer MEDICARE ==
[~2019-05-22] VITALS: Ht 179.1 cm; Wt 80.9 kg
[~2019-05-22 15:14] MED LIST changes: +ADALAT CC90 MG PO; +FLOMAX0.4 MG PO; +PROTONIX20 MG PO
[2019-05-22 15:16] VITALS: Ht 179.1 cm; Wt 80.9 kg
[2019-05-22] MEDS ORDERED: COZAAR25 MG PO (15:18)
[2019-05-22 15:36] LABS: BASOPHILS 0.2 % (0-2); EOSINOPHILS 2.3 % (0-7); HEMATOCRIT 42.5 % (42.0-54.0); HEMOGLOBIN 14.6 g/dL (13.5-17.5); IMMATURE GRANULOCYTES 0.2 % (0-5); LYMPHOCYTES 30.5 % (15-50); MCHC 34.4 g/dL (31.0-37.0); MCV 93.2 fL (80.0-100.0); MEAN PLATELET VOLUME 10.6 fL (7.4-10.4); NEUTROPHILS 58.8 % (40-80); PLATELET COUNT 142 10x3/uL (130-400); RBC 4.56 10x6/uL (4.20-6.10); RDW 13.2 % (11.5-14.5); WBC 5.6 10x3/uL (4.8-10.8)
[2019-05-22 15:54] LABS: CALC OSMOLALITY 288 mosm/kg (275-300); CALCIUM 9.1 mg/dL (8.5-10.1); CARBON DIOXIDE 25.3 mmol/L (21.0-32.0); CHLORIDE - SERUM 105 mmol/L (98-107); GLUCOSE 163 mg/dL (74-106); SODIUM 142 mmol/L (136-145); UREA NITROGEN 19 mg/dL (7-18); eGFR NON AFRICAN AMERICAN 76 mL/min (90-120)
[2019-05-22 16:02] LABS: ALBUMIN 4.3 g/dL (3.4-5.0); ALKALINE PHOSPHATASE 115 U/L (46-116); ALT (SGPT) 28 U/L (10-68); BILIRUBIN - TOTAL 0.57 mg/dL (0.2-1.3); PROTEIN - SERUM 7.5 g/dL (6.4-8.2); TROPONIN-I < 0.017 ng/mL (0.000-0.060)
[2019-05-22] MEDS ORDERED: NORVASC10 MG PO (16:04)
[2019-05-22 16:58] VITALS: BP 173/83
== END 2019-05-22 16:59 | disposition home or self-care (01) ==
LOC: D.ER 15:14
PROVIDERS: Emergency Medicine
DX: I10 Essential (primary) hypertension (principal); Z95.1 Presence of aortocoronary bypass graft

== ENCOUNTER 2019-06-01 11:38 | Observation (INO) | payer MEDICARE ==
[~2019-06-01] VITALS: Ht 179.1 cm; Wt 95.5 kg
--- NOTE | ~2019-06-01 | EC ---
PATIENT:DANA WU DATE OF SERVICE: 06/01/19 SEX: M MEDICAL RECORD: [id number] DATE OF : 35 LOCATION:D.M2 D.212 AGE OF PATIENT: 83 ADMISSION DATE: 06/01/19 REFERRING PHYSICIAN: INTERPRETING PHYSICIAN: JOSE MCNEILL MD ECHOCARDIOGRAM REPORT ECHO CHARGES 4 ECHO COMPLETE Date: 06/02/19 CLINICAL DIAGNOSIS: SYNCOPE ECHOCARDIOGRAPHIC MEASUREMENTS (adult normal given) AC root (d.<3.7cm) 3.2 cm LV Septum d (<1.2 cm> 1.6 cm Valve Excursion 2.0 cm LV Septum (systole) 2.2 cm Left Atria (s.<4.0cm> 4.0 cm LVPW d(<1.2cm) 1.1 cm RV (d.<2.3cm) 2.4 cm LVPW (sytole) 1.2 cm LV diastole(<5.6CM) 5.2 cm MV E-F(>70mm/sec) cm LV systole 4.0 cm LVOT Diameter 1.8 cm MV exc.(>10mm) cm Est.ejection fraction (50-75%) % DOPPLER: LVIT cm/sec A 83 cm/sec E 63 cm/sec LA cm/sec RVSP 20.0 mmHg LVOT 103 cm/sec AOP1/2T m/s Asc. Ao 120 cm/sec RVOT 61 cm/sec RA cm/sec PA 79 cm/sec AV Gradient Peak 5.7 mmHg AV Mean 3.3 mmHg AV Area 2.9 cm MV Gradient Peak 3.4 mmHg MV Mean 1.0 mmHg MV Area cm COMMENTS: [employer] Barista: Devin [facility] Intelligence Chief: 3 Dr. Sánchez TAPE# PACS Pericardial Effusion N DATE OF SERVICE: Adequate 2D, color-flow imaging, spectral Doppler, and M-Mode. LVH is present. LV internal dimensions are normal. Wall motion is normal. EF is greater than or equal to 55%. Aortic valve is tricuspid. No evidence of stenosis by Doppler interrogation. Left atrium is normal at 4.0 cm. Mitral valve shows no prolapse. Trace MR. Right-sided chambers are grossly normal. Trace TR. ECHOCARDIOGRAM REPORT [id number] DANA WU TRANSINT:[id number] Voice Confirmation ID: [id number] DOCUMENT ID: [id number] JOSE MCNEILL MD CC: [id number] DICTATION DATE: 06/03/19 1327 MANAGEMENT SPECIALIST: 06/03/19 1535 DIS IN 06/02/19 [address] [place] [address]
--- NOTE | ~2019-06-01 | CN ---
PATIENT NAME:DANA WU MEDICAL RECORD: [id number] : 35 LOCATION:. D.2120 ADMIT DATE: 06/01/19 ACCOUNT: [id number] CONSULTING PHYSICIAN: JOSE MCNEILL MD REFERRING PHYSICIAN: KIM VALLE MD DATE OF CONSULTATION: 06/02/2019 HISTORY OF PRESENT ILLNESS: An 83-year-old gentleman with a known history of coronary artery disease, status post coronary artery bypass grafting and subsequent intervention, was actually admitted with syncope. By 's report has been having marked problems with hypertension. He was attempted to be started on amlodipine; however, he increased his ARB on his own as he does not want to take 2 different medications, apparently has had multiple problems with the blood pressure medicines in the past, systolics were in the 200 range. BUN slightly elevated at 20. We are asked to see him concerning his cardiovascular status. PAST MEDICAL HISTORY: Includes, 1. History of coronary artery disease. 2. Dyslipidemia. 3. Hypertension. 4. Benign prostatic hypertrophy. MEDICATIONS: Protonix 20 mg p.o. day, timolol eyedrops 1 drop each eye daily, aspirin 81 every day, losartan 50 b.i.d., atorvastatin 20 every day. ALLERGIES: None known. SOCIAL HISTORY: , nonsmoker, does exercise on a regular basis. Able to take care of all his ADLs. REVIEW OF SYSTEMS: The patient reports easy bruising but reports no swollen glands. The patient reports no fever, no night sweats, no significant weight gain, no significant weight loss. No significant exercise tolerance. The patient reports no dry eyes, no irritation, no vision change. Patient reports no difficulty hearing and no ear pain. Patient reports no frequent nose bleeds or nose and sinus problems. Patient reports on arm pain on exertion. No shortness of breath while lying down. No history of heart murmur. Patient reports no cough, no wheezing or coughing up blood. Patient reports no abdominal pain, no vomiting. Normal appetite. No diarrhea and not vomiting blood. No nausea and no constipation. Patient reports no incontinence. No difficulty urinating. No hematuria. No increased frequency. Patient reports no muscle aches. No weakness, no arthralgias, no back pain. No swelling of the extremities. Patient reports no abnormal mole, no jaundice, no rashes. Reports no loss of consciousness. No weakness and no numbness. No seizures, dizziness, or headaches. The patient reports no depression, no sleep disturbance, feeling safe in a relationship and no alcohol abuse. Patient reports on fatigue. Reports no runny nose or sinus pressure. No itching, no hives, and no frequent sneezing. PHYSICAL EXAMINATION: GENERAL: Pleasant gentleman in no acute distress, appears younger than stated age. VITAL SIGNS: 168/64, pulse 60 and regular. HEENT: Normocephalic, atraumatic. CONSULT REPORT [id number] DANA WU NECK: No bruits are noted. HEART: Regular. LUNGS: Good air excursion. ABDOMEN: Soft, nontender. EXTREMITIES: Pulses are well preserved, 2+ with no edema. DIAGNOSTIC DATA: EKG without acute change. IMPRESSION: Agree with Dr. Marroquin and Dr. Valle. At this point in time, we will add a low dose Norvasc 5 mg a day, really suspect he will need 2 blood pressure medications. Syncope certainly could be related to a combination of his timolol eyedrops as well as tamsulosin. No contraindication at discharge from my standpoint. TRANSINT:[id number] Voice Confirmation ID: [id number] DOCUMENT ID: [id number] JOSE MCNEILL MD CC: [id number] DICTATION DATE: 06/02/191199 [employer]FT MECHANIC: 06/02/192012 DIS IN 06/02/19 [facility] [address] [place] [address]
[~2019-06-01 11:38] MED LIST changes: +COZAAR25 MG PO; +NORVASC10 MG PO
--- NOTE | 2019-06-01 12:10 | NUR ---
DR. ANDRES AT BEDSIDE AT THIS TIME.
[2019-06-01 12:44] LABS: BASOPHILS 0.5 % (0-2); CALC OSMOLALITY 281 mosm/kg (275-300); CALCIUM 9.3 mg/dL (8.5-10.1); CARBON DIOXIDE 25.7 mmol/L (21.0-32.0); CHLORIDE - SERUM 103 mmol/L (98-107); CREATININE - SERUM 1.1 mg/dL (0.6-1.3); EOSINOPHILS 1.2 % (0-7); GLUCOSE 120 mg/dL (74-106); HEMOGLOBIN 16.2 g/dL (13.5-17.5); IMMATURE GRANULOCYTES 0.2 % (0-5); LYMPHOCYTES 34.8 % (15-50); MCH 31.8 pg (26.0-34.0); MCHC 34.5 g/dL (31.0-37.0); MCV 92.3 fL (80.0-100.0); MEAN PLATELET VOLUME 10.6 fL (7.4-10.4); MONOCYTES 9.7 % (2-11); NEUTROPHILS 53.6 % (40-80); PLATELET COUNT 165 10x3/uL (130-400); RBC 5.09 10x6/uL (4.20-6.10); SODIUM 139 mmol/L (136-145); UREA NITROGEN 20 mg/dL (7-18); WBC 6.6 10x3/uL (4.8-10.8); eGFR NON AFRICAN AMERICAN 68 mL/min (90-120)
[2019-06-01 12:45] LABS: APTT 21.8 SECONDS (22.8-39.4); INR 1.05 (0.85-1.17); PROTIME 13.7 SECONDS (11.6-15.0)
[2019-06-01 13:01] LABS: ALKALINE PHOSPHATASE 110 U/L (46-116); ALT (SGPT) 32 U/L (10-68); BILIRUBIN - TOTAL 1.05 mg/dL (0.2-1.3); CKMB 1.6 U/L (0.0-3.6); CREATINE KINASE 81 UL (21-232); PROTEIN - SERUM 7.9 g/dL (6.4-8.2); TROPONIN-I < 0.017 ng/mL (0.000-0.060)
[2019-06-01 13:26] VITALS: BP 139/70
[2019-06-01] MEDS ORDERED: COZAAR50 MG PO (14:51)
[2019-06-01] MEDS ORDERED: TIMOPTIC 0.5 % O5 ML EACH EYE (14:52)
[2019-06-01] MEDS ORDERED: XALATAN 0.0052.5 ML EACH EYE (14:53)
[2019-06-01] MEDS ORDERED: PROTONIX20 MG PO (14:55)
--- NOTE | 2019-06-01 15:00 | NUR ---
RECEIVED PT TO ROOM 2119 VIA W/C FROM ER AAOX4 RESP UNLABORED SKIN W/D COLOR WNL PT DENIES ANY PAIN OR DISCOMFORT DR RUDOLPH HERE WITH PT WILL CONTINUE TO MONITOR
[2019-06-01 15:13] VITALS: Ht 179.1 cm; Wt 95.5 kg
--- NOTE | 2019-06-01 19:20 | NUR ---
RECEIVED REPORT, WILL ASSUME CARE OF PT, PROVIDED URINAL, EXPLAINED BP MEDS WILL BE GIVEN ORDERED,BED IS LOW, SRX2, CALL LIGHT IN REACH, WILL CONTINUE PLAN OF CARE
[2019-06-01 20:30] VITALS: BP 115/42
[2019-06-02 00:20] VITALS: BP 152/60
[2019-06-02 04:30] VITALS: BP 144/99
--- NOTE | 2019-06-02 05:12 | NUR ---
I have reviewed this patient and I concur with the Shift Assessment completed by the Licensed Practical Nurse today this shift.
[2019-06-02 06:31] LABS: BASOPHILS 0.2 % (0-2); HEMATOCRIT 44.4 % (42.0-54.0); LYMPHOCYTES 26.4 % (15-50); MCH 31.6 pg (26.0-34.0); MCHC 33.8 g/dL (31.0-37.0); MCV 93.5 fL (80.0-100.0); MEAN PLATELET VOLUME 10.2 fL (7.4-10.4); MONOCYTES 11.6 % (2-11); NEUTROPHILS 59.8 % (40-80); PLATELET COUNT 153 10x3/uL (130-400); RBC 4.75 10x6/uL (4.20-6.10); WBC 6.5 10x3/uL (4.8-10.8)
[2019-06-02 06:59] LABS: CALC OSMOLALITY 285 mosm/kg (275-300); CALCIUM 9.1 mg/dL (8.5-10.1); CARBON DIOXIDE 27.2 mmol/L (21.0-32.0); CHLORIDE - SERUM 107 mmol/L (98-107); CREATININE - SERUM 1.2 mg/dL (0.6-1.3); GLUCOSE 101 mg/dL (74-106); SODIUM 142 mmol/L (136-145); TROPONIN-I < 0.017 ng/mL (0.000-0.060); UREA NITROGEN 20 mg/dL (7-18); eGFR NON AFRICAN AMERICAN 61 mL/min (90-120)
--- NOTE | 2019-06-02 07:39 | NUR ---
ASSESSMENT DONE. DENIES NEEDS
[2019-06-02 08:09] VITALS: BP 185/84
--- NOTE | 2019-06-02 08:10 | NUR ---
I have reviewed this patient and I concur with the Shift Assessment completed by the Licensed Practical Nurse today this shift.
[2019-06-02 11:32] VITALS: BP 168/64
--- NOTE | 2019-06-02 12:56 | NUR ---
NEW DISCHARGE ORDERS RECEIVED FROM DR CERVANTES.
[2019-06-02] MEDS ORDERED: PROSCAR5 MG PO (13:06)
[2019-06-02] MEDS ORDERED: NORVASC5 MG PO (13:07)
--- NOTE | 2019-06-02 13:14 | NUR ---
NO FLU SHOT UPON ADMIT, PATIENT TO REFUSE ONE UPON DISCHARGE.
--- NOTE | 2019-06-02 14:38 | NUR ---
DC GIVEN TO PT
--- NOTE | 2019-06-02 14:51 | NUR ---
DC HOME PER PERSONAL CAR
--- NOTE | 2019-06-03 08:51 | MORECARE ---
CASE MANAGEMENT DISCHARGE SUMMARY PATIENT: DANA GUEVARA O UNIT: [id number] ADM DATE: 06/01/19 AGE: 83 : 35 SEX: M ROOM/BED: D.2120 AUTHOR: MIGUEL ANGEL FRYE PHYSICIAN: REFERRING PHYSICIAN: KIM CERVANTES MD DATE OF SERVICE: 06/03/19 Discharge Plan Patient Name: DANA [facility]UEVARA [facility] [facility] 1935 Planned Disposition: Home Anticipated Discharge Date: 06/02/19 Discharge Date: 06/02/2019 Expected LOS: 1 Initial Reviewer: [email or web address] Initial Review Date: 06/03/2019 Generated: 06/03/19 9:50 am Coverage Notice Reviewer: [id number] Gabriela Villarreal Notice Issued Date-Time: 06/01/2019 14:00 Notice Type: Medicare Outpatient Observation Notice Notice Delivered To: Family Member Relationship to Patient: Spouse Relations Coordinator Name: Maggie Guevara Delivery Method: HAND - Hand Delivered Lucie Days: Prior Verbal Notification: Recipient Understood Notice: Yes Recipient Signature: Yes Med Rec Note Co-signed by Attending: Coverage Notice Comment: MOREJON delivered to and signed by patient's spouse, Maggie Guevara. Original given to spouse and one placed on the chart. Patient Name: DANA GUEVARA Page [id number] at 0851 All edits/amendments must be made on the electronic document DICTATION DATE: 06/03/19 0850 COLLECTOR OF PORT: SERENA 06/03/19 0850 RPT#: [id number] DC DATE:06/02/19 STATUS: DIS IN [facility] [address] [facility] [place] [address] END OF REPORT
--- NOTE | 2019-06-04 10:44 | HP ---
PATIENT: DANA WU MEDICAL RECORD: [id number] ACCOUNT: [id number] LOCATION:[address] : 35 ADMISSION DATE: 06/01/19 PCP: KIM VALLE MD HISTORY AND PHYSICAL EXAMINATION DATE ASSIGNED TO OBSERVATION: 06/01/2019 CHIEF COMPLAINT: Syncope and hypertension. HISTORY OF PRESENT ILLNESS: This is an 83-year-old white male who is followed by Dr. Valle. He was in buddhism today and felt weak, felt like he was going to pass out. He was assisted out to the foyer of the buddhism where he did pass out. He was laid down on the floor where a buddhism member who is a nurse attended to him. EMS was called. By the time they got here, he was awake and alert and in no acute distress. He had no chest pain. He was brought in to the ER, his blood pressure was 160/70. Otherwise, vital signs were fairly stable. The patient and his states he had another near syncopal episode on 05/22/2019. At that time, he bent over straight into back up and felt dizzy. His took his blood pressure then and his systolic blood pressure was over 200. He came to the ER that day. He was prescribed amlodipine, but he did not get that filled. He increased his losartan from 25 mg once a day to 50 mg twice a day. I actually saw him in the office this week on 05/26/2019. The patient had no chest pain. No fever, chills, nausea, vomiting. No diaphoresis. He is assigned to observation. PAST MEDICAL AND SURGICAL HISTORY: Hypertension, coronary artery disease, hyperlipidemia, bladder cancer, BPH, and glaucoma. PAST SURGICAL HISTORY: Coronary artery bypass graft 20+ years ago and stents since then. Dr. Goodman is his conduit mechanic. DRUG ALLERGIES: None. HOME MEDICATIONS: Include tamsulosin 0.4 two pills daily, Protonix 20 mg daily, losartan 50 mg twice a day, atorvastatin 20 mg once a day, timolol 0.5% drops 1 drop in each eye once a day, latanoprost 0.005% eyedrops 1 drop in each eye once a day, aspirin 81 mg once a day. HABITS: Never smoked. No alcohol or drugs. SOCIAL HISTORY: Retired, . FAMILY HISTORY: Unknown at this time. REVIEW OF SYSTEMS: GENERAL: No major weight changes. HEENT: No particular sinus or allergy problems. RESPIRATORY: No history of COPD or asthma. CARDIAC: See above history. GASTROINTESTINAL: Has some heartburn. GENITOURINARY: Has a history of bladder cancer, treated with BCG treatments. He has BPH and has been on tamsulosin 2 pills a day for months. NEUROLOGIC: No seizures. No migraines. PSYCHIATRIC: Denies depression or melancholia. HISTORY AND PHYSICAL [id number] DANA WU PHYSICAL EXAMINATION: VITAL SIGNS: Temperature 98.3, pulse 71, respirations 18, blood pressure 154/69, O2 sat 97%. GENERAL: He is awake and alert, does not appear to be in acute distress. at bedside. SKIN: Warm and dry. HEENT: Grossly within normal limits. NECK: Supple. No JVD or bruit. HEART: Regular rate and rhythm without murmur. LUNGS: Clear. ABDOMEN: Soft, flat, nontender. EXTREMITIES: No edema. NEUROLOGIC: No focal motor or sensory deficits. DIAGNOSTIC DATA: Chest x-ray shows no active disease. EKG, nonspecific. LABORATORY DATA: CBC with a white count of 6600, hemoglobin 16.2, hematocrit 47. Basic metabolic panel is all normal. Liver functions are normal. INR 1.05. Troponin less than 0.017. ASSESSMENT: 1. Syncopal episode. 2. Hypertension. 3. On tamsulosin, which can cause orthostatic hypotension or arrhythmias or syncope. PLAN: We will observe overnight. We will schedule carotid Doppler ultrasound, telemetry. Dr. Goodman will be consulted. Other tests or procedures as warranted. TRANSINT:[id number] Voice Confirmation ID: [id number] DOCUMENT ID: [id number] REYNOLD RUDOLPH MD at 1044 CC: [id number] DICTATION DATE: 06/01/19 1504 MORTGAGE MANAGER: 06/01/19 1542 DIS IN 06/02/19 [id number] [place] [address]
== END 2019-06-02 14:51 | disposition home or self-care (01) ==
LOC: D.ER 11:38 → D.M2 13:47 → OBSVTIME 14:05 → D.M2 06-02 14:51
PROVIDERS: Emergency Medicine; ADMIT Family Medicine; ATTEND Family Medicine
DX: R55 Syncope and collapse (principal); I10 Essential (primary) hypertension; I95.1 Orthostatic hypotension; N40.0 Benign prostatic hyperplasia without lower urinary tract symptoms; H40.9 Unspecified glaucoma; I25.10 Atherosclerotic heart disease of native coronary artery without angina pectoris; K21.9 Gastro-esophageal reflux disease without esophagitis; Z95.1 Presence of aortocoronary bypass graft; Z95.5 Presence of coronary angioplasty implant and graft

== ENCOUNTER → 2019-10-16 08:10 | Outpatient (CLI) | payer MEDICARE ==
[2019-06-01 15:13] VITALS: BMI 29.7
[~2019-10-16 08:10] MED LIST changes: +COZAAR50 MG PO; +NORVASC5 MG PO; +PROSCAR5 MG PO; +TIMOPTIC 0.5 % O5 ML EACH EYE; +XALATAN 0.0052.5 ML EACH EYE
== END | disposition home or self-care (01) ==
LOC: D.HCCARDIO 08:10
PROVIDERS: ATTEND Internal Medicine Cardiovascular Disease
DX: I25.10 Atherosclerotic heart disease of native coronary artery without angina pectoris (principal)

== ENCOUNTER → 2020-09-07 10:15 | Outpatient (CLI) | payer MEDICARE, OTHER ==
[2019-06-01 15:13] VITALS: BMI 29.7
== END | disposition home or self-care (01) ==
LOC: D.HCCARDIO 10:15
PROVIDERS: ATTEND Internal Medicine Cardiovascular Disease
DX: I25.10 Atherosclerotic heart disease of native coronary artery without angina pectoris (principal)